=== PATIENT | male | born 1985 | race Caucasian/White ===

== ENCOUNTER 2018-03-05 02:44 | Emergency (ER) | payer OTHER ==
[~2018-03-05] VITALS: Ht 167.6 cm; Wt 81.6 kg
[2018-03-05 02:48] VITALS: BP_SYST 139
[2018-03-05 03:00] VITALS: BP_SYST 139
== END 2018-03-05 03:00 ==
LOC: SED 02:44
DX: Z02.89 Encounter for other administrative examinations (principal)